=== PATIENT | female | born 1990 | race Caucasian/White ===

== ENCOUNTER 2016-11-30 11:21 | Inpatient (IN) | payer MEDICAID ==
[~2016-11-30] VITALS: Ht 165.1 cm; Wt 73.0 kg
[~2016-11-30 11:21] MED LIST: PRENATAL PLUS1 TA1 PO; ZANTAC 150150 MG PO
[2016-11-30 11:48] VITALS: BP 131/94
[2016-11-30] MEDS ORDERED: NIFEDIPINE XL 330 MG PO (11:51)
[2016-11-30 12:20] LABS: HEMOGLOBIN 10.8 g/dL (12.2-16.2); LYMPH # 1.9 K/mm3 (0.7-4.5); LYMPH % 19.2 % (10-50.0)
[2016-11-30 12:41] LABS: URINE BILIRUBIN - DIPSTICK NEGATIVE (NEG); URINE BLOOD 1+ (NEG)
[2016-11-30 12:57] LABS: ABO BLOOD TYPE A; RH BLOOD TYPE POSITIVE
[2016-11-30 20:06] VITALS: BP 124/62
[2016-11-30 20:11] VITALS: BP 140/87
[2016-11-30 21:04] VITALS: BP 136/91
[2016-11-30 22:04] VITALS: BP 128/75
[2016-11-30 23:04] VITALS: BP 117/76
[2016-12-01] VITALS (8 sets, daily range): BP systolic 117–150; BP diastolic 65–88
--- NOTE | 2016-12-01 08:04 | ACUTE CARE PROGRESS NOTE (QUA) ---
Progress Notes Subjective Date 12/01/16 Time 0802 Note She is doing a little better this morning. Her blood pressure has come down with the magnesium sulfate. She occasionally still has a headache. She is having an ultrasound this morning. Patient/family reports: feeling better, headache Objective Findings Laboratory Tests 12/01/16 0615: Magnesium 5.2 H 11/30/16 1215: Magnesium 1.1 L, MCH 29.8 11/30/16 1215: Sodium 138, Potassium 2.7 *L, Chloride 103, Carbon Dioxide 26, BUN 7, Creatinine 0.9, Estimated Creat Clear 108, Estimated GFR (MDRD) 75, Glucose 84, Uric Acid 7.4 H, Calcium 10.2 H, AST 13 L, ALT 13, PT 10.1, INR 0.94, APTT 25.2, Fibrinogen 350.7, D-Dimer 913 *H, WBC 9.8, RBC 3.61 L, Hgb 10.8 L, Hct 30.8 L , MCV 85.4, RDW 13.9, Plt Count 222, MPV 9.8, Gran % 76.4, Gran # 7.5, Lymphocytes % 19.2, Monocytes % 3.7, Eosinophils % 0.3, Basophils % 0.3, Lymphocytes # 1.9, Monocytes # 0.4, Eosinophils # 0.0, Basophils # 0.0, PUBS MCHC 34.9, Antibody Screen NEGATIVE, Miscellaneous Test POSITIVE 11/30/16 1130: Urine Color YELLOW, Urine Appearance CLEAR, Urine pH 6.5, Ur Specific [place] 1.015, Urine Protein NEGATIVE, Urine Ketones NEGATIVE, Urine Blood 1+ H, Urine Nitrate NEGATIVE, Urine Bilirubin NEGATIVE, Urine Urobilinogen 0.2, Ur Leukocyte Esterase 1+ H, Urine WBC 5-10, Ur Squamous Epith Cells 5-10, Urine Bacteria 2+, Urine Mucus 1+, Urine Glucose NEGATIVE Microbiology Date/Time Procedure - Status Source Growth 11/30 1129 Urine Culture - RES URINE CC Last VS-Temp:98.7 B/P:120/70 Pulse:76 Resp:20 SaO2: Last weight lbs:161 oz:0 K.029 Method:Floor Scales Exam General appearance: normal appearance, alert, awake, no acute distress Reviewed: vital signs, lab results Assessment/Plan Problem List 1. Mild pre-eclampsia in third trimester Patient condition Stable Plan: continue current care This inpt stay is expected to cross 2 MNs from start of care Yes Comments: We will continue with the magnesium sulfate. We are collecting her urine at this point in time. She is having ultrasound this morning. If she continues to have increased blood pressure despite her medications. We will consider transferring her to [facility]. at 0804
--- NOTE | 2016-12-01 08:47 | RADIOLOGY REPORT PS360 ---
US BIOPHYSICAL PROFILE, SD RATIO UMBILICAL ARTERY, US PREG [id number]: Indication: -induced hypertension IUP 33 WEEKS ORDERING PHYSICIAN: Tom Parekh MD PATIENT AGE: 26 years FINDINGS: There is a single live fetus present in cephalic presentation. heart tones are present at 1 33 bpm. Placenta is posterior and grade 1. No previa evident. Biometric measurements were not obtained Amniotic fluid index: 9.12 cm Qualitative AFV: 2 breathing movements: 2 Gross body movements: 2 Tone: 2 Biophysical profile score: 8/8 Doppler evaluation of the umbilical artery: SD ratio: 2.2 Resistive index: 0.54 Breathing motion was noted however the technologist notes it took the whole 30 minutes to see breathing movement IMPRESSION: Live IUP with reported gestational age of 33 weeks. Biometric measurements not obtained. SAJI within normal limits at 9.18 cm. Biophysical profile 8 of 8
--- NOTE | 2016-12-01 08:47 | RADIOLOGY REPORT PS360 ---
US BIOPHYSICAL PROFILE, SD RATIO UMBILICAL ARTERY, US PREG [id number]: Indication: -induced hypertension IUP 33 WEEKS ORDERING PHYSICIAN: Tom Parekh MD PATIENT AGE: 26 years FINDINGS: There is a single live fetus present in cephalic presentation. heart tones are present at 1 33 bpm. Placenta is posterior and grade 1. No previa evident. Biometric measurements were not obtained Amniotic fluid index: 9.12 cm Qualitative AFV: 2 breathing movements: 2 Gross body movements: 2 Tone: 2 Biophysical profile score: 8/8 Doppler evaluation of the umbilical artery: SD ratio: 2.2 Resistive index: 0.54 Breathing motion was noted however the technologist notes it took the whole 30 minutes to see breathing movement IMPRESSION: Live IUP with reported gestational age of 33 weeks. Biometric measurements not obtained. SAJI within normal limits at 9.18 cm. Biophysical profile 8 of 8
--- NOTE | 2016-12-01 08:47 | RADIOLOGY REPORT PS360 ---
US BIOPHYSICAL PROFILE, SD RATIO UMBILICAL ARTERY, US PREG [id number]: Indication: -induced hypertension IUP 33 WEEKS ORDERING PHYSICIAN: Tom Parekh MD PATIENT AGE: 26 years FINDINGS: There is a single live fetus present in cephalic presentation. heart tones are present at 1 33 bpm. Placenta is posterior and grade 1. No previa evident. Biometric measurements were not obtained Amniotic fluid index: 9.12 cm Qualitative AFV: 2 breathing movements: 2 Gross body movements: 2 Tone: 2 Biophysical profile score: 8/8 Doppler evaluation of the umbilical artery: SD ratio: 2.2 Resistive index: 0.54 Breathing motion was noted however the technologist notes it took the whole 30 minutes to see breathing movement IMPRESSION: Live IUP with reported gestational age of 33 weeks. Biometric measurements not obtained. SAJI within normal limits at 9.18 cm. Biophysical profile 8 of 8
--- NOTE | 2016-12-01 08:47 | RADIOLOGY REPORT PS360 ---
US BIOPHYSICAL PROFILE, SD RATIO UMBILICAL ARTERY, US PREG [id number]: Indication: -induced hypertension IUP 33 WEEKS ORDERING PHYSICIAN: Tom Parekh MD PATIENT AGE: 26 years FINDINGS: There is a single live fetus present in cephalic presentation. heart tones are present at 1 33 bpm. Placenta is posterior and grade 1. No previa evident. Biometric measurements were not obtained Amniotic fluid index: 9.12 cm Qualitative AFV: 2 breathing movements: 2 Gross body movements: 2 Tone: 2 Biophysical profile score: 8/8 Doppler evaluation of the umbilical artery: SD ratio: 2.2 Resistive index: 0.54 Breathing motion was noted however the technologist notes it took the whole 30 minutes to see breathing movement IMPRESSION: Live IUP with reported gestational age of 33 weeks. Biometric measurements not obtained. SAJI within normal limits at 9.18 cm. Biophysical profile 8 of 8
--- NOTE | 2016-12-01 08:47 | RADIOLOGY REPORT PS360 ---
US BIOPHYSICAL PROFILE, SD RATIO UMBILICAL ARTERY, US PREG [id number]: Indication: -induced hypertension IUP 33 WEEKS ORDERING PHYSICIAN: Tom Parekh MD PATIENT AGE: 26 years FINDINGS: There is a single live fetus present in cephalic presentation. heart tones are present at 1 33 bpm. Placenta is posterior and grade 1. No previa evident. Biometric measurements were not obtained Amniotic fluid index: 9.12 cm Qualitative AFV: 2 breathing movements: 2 Gross body movements: 2 Tone: 2 Biophysical profile score: 8/8 Doppler evaluation of the umbilical artery: SD ratio: 2.2 Resistive index: 0.54 Breathing motion was noted however the technologist notes it took the whole 30 minutes to see breathing movement IMPRESSION: Live IUP with reported gestational age of 33 weeks. Biometric measurements not obtained. SAJI within normal limits at 9.18 cm. Biophysical profile 8 of 8
--- NOTE | 2016-12-01 08:47 | RADIOLOGY REPORT PS360 ---
US BIOPHYSICAL PROFILE, SD RATIO UMBILICAL ARTERY, US PREG [id number]: Indication: -induced hypertension IUP 33 WEEKS ORDERING PHYSICIAN: Tom Parekh MD PATIENT AGE: 26 years FINDINGS: There is a single live fetus present in cephalic presentation. heart tones are present at 1 33 bpm. Placenta is posterior and grade 1. No previa evident. Biometric measurements were not obtained Amniotic fluid index: 9.12 cm Qualitative AFV: 2 breathing movements: 2 Gross body movements: 2 Tone: 2 Biophysical profile score: 8/8 Doppler evaluation of the umbilical artery: SD ratio: 2.2 Resistive index: 0.54 Breathing motion was noted however the technologist notes it took the whole 30 minutes to see breathing movement IMPRESSION: Live IUP with reported gestational age of 33 weeks. Biometric measurements not obtained. SAJI within normal limits at 9.18 cm. Biophysical profile 8 of 8
--- NOTE | 2016-12-01 12:13 | Discharge Summary ---
Discharge Summary Admission date: 11/30/16 Discharge date: 12/01/16 Discharge diagnoses: -induced hypertension, intrauterine growth restriction, hypokalemia Clinical note: She is a 26-year-old 4 para 2 aborta 1 who is 33 weeks gestational age. She has had 2 previous sections. She is scheduled for a repeat lower segment transverse section and tubal ligation at 39 weeks. She has been followed by me throughout her and has had increasing blood pressure. As result of that she was admitted for control of her blood pressure. As an outpatient she was started on nifedipine 30 mg XL at 26 weeks. Last week she was increased from 30 mg to 60 mg XL and nifedipine. She continued have elevated blood pressure so elected to admit her for control of her blood pressure. Course in hospital: She was continued with her nifedipine XL 60 mg. She did receive 1 dose of 10 mg yesterday and this seemed to help her blood pressure. Shortly thereafter however her blood pressure began to elevate in the 140-150 range over 90-100 range and as result of that I elected to start her on IV magnesium sulfate. She initially received a bolus of 4 g followed by 2 g an hour. She had routine blood work drawn and her uric acid was 7.4. She was also hypokalemic with a potassium of 2.7. She was started on oral potassium. Her blood pressures have improved with the magnesium sulfate but I am concerned that she has -induced hypertension and we will possibly need early delivery. She did receive IM Celestone 12 mg, 2 doses 24 hours apart. Plans for ongoing care: I spoke to Dr. Regulo Farris at [facility] and he will take her in transfer. Discharge medications She will continue with her IV magnesium sulfate at 2 g an hour in transit. She was started on a 24 hour urine but I suspect that she will be restarted again today. She will continue with her nifedipine 60 mg XL. She will continue with her vitamins and iron. DC/follow-up instructions If she is discharged from [facility] then she will follow-up with me in the office shortly after discharge. Condition at discharge Stable at 1213
== END 2016-12-01 12:30 | disposition short-term general hospital (02) | DRG 782 ==
LOC: OBOUT 11:21 → OB 11:22 → OBOUT 15:10 → OB 15:10
PROVIDERS: Nurse Practitioner Obstetrics & Gynecology
DX: O13.3 Gestational [pregnancy-induced] hypertension without significant proteinuria, third trimester (principal); O36.5930 Maternal care for other known or suspected poor fetal growth, third trimester, not applicable or unspecified; Z3A.33 33 weeks gestation of pregnancy; E87.6 Hypokalemia